=== PATIENT | male | born 1955 ===

== ENCOUNTER 2018-11-03 13:38 | Emergency (ER) | payer SELFPAY ==
[2018-11-03 13:54] VITALS: TEMP 98.7
[2018-11-03 15:12] LABS: BASO % 0.3 % (0.0-2.0); HEMOGLOBIN 14.9 g/dL (12.0-18.0); LYMPH # 1.5 K/uL (1.0-4.3); LYMPH % 13.4 % (20.0-40.0); MEAN CELL VOLUME 86.7 fL (80.0-94.0); MEAN CORPUSCULAR HEMOGLOBIN 29.3 pg (27.0-31.0); MEAN CORPUSCULAR HGB CONC 33.8 g/dL (33.0-37.0); MEAN PLATELET VOLUME 9.3 fL (7.2-11.7); MONO # 0.5 K/uL (0.0-0.8); MONO % 4.4 % (0.0-10.0); NEUT % 81.9 % (50.0-75.0); RBC 5.09 Mil/uL (4.40-5.90); RED CELL DISTRIBUTION WIDTH 14.5 % (11.5-14.5); WHITE BLOOD COUNT 10.9 K/uL (4.8-10.8)
--- NOTE | 2018-11-03 15:22 | C.PDOC ---
History Of Present Illness 63 year old male presents to the ED for evaluation of epigastric discomfort and palpitations which had sudden onset at around 0600 today. Patient has history of GERD, which he is not managing with medications. Patient was ambulatory to the ED today. He denies shortness of breath and weakness. Patient denies history of smoking or family cardiac history. Time Seen by Provider: 11/03/18 15:04 Chief Complaint (Nursing): Dizziness/Lightheaded History Per: Patient History/Exam Limitations: no limitations Onset/Duration Of Symptoms: Hrs, Sudden Onset Current Symptoms Are (Timing): Still Present Past Medical History Reviewed: Historical Data, Nursing Documentation, Vital Signs Vital Signs: Last Vital Signs Temp 98.7 F 11/03/18 13:49 Pulse 84 11/03/18 14:41 Resp 13 11/03/18 14:41 BP 154/92 H 11/03/18 14:41 Pulse Ox 97 11/03/18 14:41 - Medical History PMH: No Chronic Diseases Surgical History: No Surg Hx Family History: States: Unknown Family Hx - Social History Hx Alcohol Use: No Hx Substance Use: No Review Of Systems Cardiovascular: Positive for: Palpitations Respiratory: Negative for: Shortness of Breath Gastrointestinal: Positive for: Abdominal Pain (epigastric ) Neurological: Negative for: Weakness, Numbness Physical Exam - Physical Exam Appears: Non-toxic, No Acute Distress, Other (elderly male ) Skin: Normal Color, Warm, Dry Head: Atraumatic, Normacephalic Eye(s): bilateral: Normal Inspection Oral Mucosa: Moist Neck: Supple Chest: Symmetrical, No Deformity, No Tenderness Cardiovascular: Rhythm Regular, No Murmur Respiratory: Normal Breath Sounds, No Rales, No Rhonchi, No Wheezing Gastrointestinal/Abdominal: Soft, No Tenderness, No Guarding, No Rebound Extremity: Normal ROM, Capillary Refill (less than 2 seconds) Neurological/Psych: Oriented x3, Normal Speech, Normal Cognition ED Course And Treatment - Laboratory Results Result Diagrams: 11/03/18 15:07 11/03/18 15:07 Lab Interpretation: Normal (d-dimer, neg, trop/bnp neg.) ECG: Interpreted By Wa ECG Rhythm: Sinus Rhythm ECG Interpretation: Normal Rate From EC O2 Sat by Pulse Oximetry: 97 (on RA) Pulse Ox Interpretation: Normal - Radiology CXR: Interpreted by Me CXR Interpretation: Yes: No Acute Disease - Other Rad CXR X-Ray: Viewed By Me, Read By Radiologist Interpretation: IMPRESSION: No active pulmonary disease. Progress Note: Bloodwork, CXR and EKG ordered and reviewed. Reevaluation Time: 16:14 Reassessment Condition: Improved (remains asymptomatic) Medical Decision Making Medical Decision Making: brief chest discomfort this AM no cardiac component d-dimer neg ? GERD outpatient f/u. Disposition Doctor Will See Patient In The: Office Counseled Patient/Family Regarding: Studies Performed, Diagnosis - Disposition Referrals: [facility] [Outside] [facility] [Outside] [facility] [Outside] Disposition: HOME/ ROUTINE Disposition Time: 16:15 Condition: GOOD Additional Instructions: todos los examenes normales Considera GERD Shawna Pepcid 20 mg en la noche para prevenir acides del estomago y reflujo del esophagus Sigue en la [facility] necessario Instructions: Palpitations, Acid Reflux (Gastroesophageal Reflux Disease), Adult (DC) Forms: [facility] ([place]) Print Language: IRISH - Clinical Impression Clinical Impression: Dizziness - Scribe Statement The provider has reviewed the documentation as recorded by the Scribe (Evelyn Sanches) Provider Attestation: All medical record entries made by the Scribe were at my direction and personally dictated by me. I have reviewed the chart and agree that the record accurately reflects my personal performance of the history, physical exam, medical decision making, and the department course for this patient. I have also personally directed, reviewed, and agree with the discharge instructions and disposition.
[2018-11-03 15:29] LABS: ALB/GLOB RATIO 1.4 (1.0-2.1); ALBUMIN 4.6 g/dL (3.5-5.0); ALT/SGPT 27 U/L (21-72); AST/SGOT 42 U/L (17-59); BLOOD UREA NITROGEN 21 mg/dL (9-20); CALCIUM 8.9 mg/dl (8.6-10.4); GFR NON-AFRICAN AMERICAN > 60
[2018-11-03 15:41] LABS: B-TYPE NATRIURETIC PEPTIDE 101 pg/mL (0-900)
--- NOTE | 2018-11-03 16:17 | RAD ---
Date of service: 11/03/2018 PROCEDURE: CHEST RADIOGRAPH, 1 VIEW HISTORY: Chest pain COMPARISON: None available. FINDINGS: LUNGS: The lungs are well inflated and clear. PLEURA: No pneumothorax or pleural effusion. CARDIOVASCULAR: The heart is normal in size. No aortic atherosclerotic calcifications present. OSSEOUS STRUCTURES: Within normal limits for the patient's age. VISUALIZED UPPER ABDOMEN: Normal. OTHER FINDINGS: None. IMPRESSION: No active pulmonary disease.
[2018-11-03 17:09] VITALS: BP 142/86; PULSE 68; RESP 18
[2018-11-03 18:18] VITALS: O2SAT 97
--- NOTE | 2018-11-04 19:33 | CARD ---
APPROVED REPORT Date of service: 11/03/2018 EKG Measurement Heart [id number] [id number] <Conclusion> Normal sinus rhythm Normal ECG
== END 2018-11-03 16:46 | disposition home or self-care (01) ==
LOC: C.ER 13:38
DX: R42 Dizziness and giddiness (principal); R10.13 Epigastric pain